=== PATIENT | male | born 1980 | race Caucasian/White ===

== ENCOUNTER 2016-10-01 19:51 | Emergency (ER) | payer BC, MEDICAID ==
[~2016-10-01] VITALS: Ht 193 cm; Wt 104.3 kg
[~2016-10-01 19:51] MED LIST: BACTRIM DS TAB1 EAC1 ORAL; KEFLEX500 MG ORAL; NORCO 5-325 TA1 EACH ORAL
[2016-10-01 20:00] VITALS: BP 147/92
[2016-10-01] MEDS ORDERED: Norco 5mg/325mg tab ORAL ONE (20:15)
[2016-10-01] MEDS ORDERED: Lidocaine 1% Plain 30 ml INJ ONE (20:15)
[2016-10-01] MEDS ORDERED: Bacitracin Oint UD TOPIC ONE (20:15)
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
[2016-10-01] MEDS ORDERED: AUGMENTIN 875-1 EAC1 ORAL (22:30)
[2016-10-01] MEDS ORDERED: IBUPROFEN600 MG ORAL (22:30)
[2016-10-01 22:35] VITALS: BP 140/78
[2016-10-01] MEDS ORDERED: NORCO 5-325 TA1 EAC1 ORAL (22:36)
--- NOTE | 2016-10-02 09:03 | Diagnostic Imaging Report ---
Indications: And pain, status post trauma Technique: Spiral acquisitions obtained through the brain. Angled axial and coronal 5 x 5 mm slices were reconstructed. Total dose length product 1361 mGycm. CTDI vol(s) 17 mGy. Dose reduction achieved using automated exposure control Comparison: None Findings: There is a left periorbital and malar region soft tissue contusion. No definite underlying fracture is evident. Is also some soft tissue gas indicating laceration in the same area. No acute intracranial hemorrhage or edema. No mass effect nor midline shift. Normal whitlock-white differentiation. Normal size ventricles and extra-axial CSF spaces. Impression: Evidence of left periorbital scalp soft tissue injury Negative for acute intracranial bleed or mass effect This agrees with the preliminary interpretation provided overnight by [facility]. The CT scanner at [facility] is accredited by the [employer] and the scans are performed using protocols designed to limit radiation exposure to as low as reasonably achievable to attain images of sufficient resolution adequate for diagnostic evaluation.
--- NOTE | 2016-10-04 08:04 | Diagnostic Imaging Report ---
Indications: PAIN Technique: Spiral images obtained through the facial bones. No IV contrast utilized. Multiplanar reconstructions were generated.Total dose length product 568 mGycm. CTDIvol(s) 28mGy. Dose reduction achieved using automated exposure control Comparison: None Findings: There is some image degradation due to motion artifact. There is a left malar soft tissue hematoma, and some gas within the soft tissues indicates laceration. No underlying fracture. No worrisome sinus opacification. There is a small mucous retention cyst or polyp in the right maxillary sinus. No worrisome sinus air-fluid levels. The nasal septum is intact. The dentition is intact. Impression: Positive for left malar region soft tissue hematoma and laceration No acute fracture. This agrees with the preliminary interpretation provided overnight by [facility]. The CT scanner at [facility] is accredited by the [employer] and the scans are performed using protocols designed to limit radiation exposure to as low as reasonably achievable to attain images of sufficient resolution adequate for diagnostic evaluation.
== END 2016-10-01 22:35 | disposition home or self-care (01) ==
LOC: EMR 20:07
DX: S01.81XA Laceration without foreign body of other part of head, initial encounter (principal); Y04.8XXA Assault by other bodily force, initial encounter; Y93.9 Activity, unspecified; Y92.9 Unspecified place or not applicable
CPT/HCPCS: 12015; 70450; 70486; 99284; J2001; Z7502